=== PATIENT | male | born 1980 | race Caucasian/White ===

== ENCOUNTER 2023-06-27 02:05 | Emergency (ER) | payer BC, MEDICAID ==
[2023-06-27] MEDS ORDERED: Ondansetron 4 MG/2 ML SDV ONE (02:35)
[2023-06-27] MEDS ORDERED: Ondansetron 4 MG/2 ML SDV IVPUSH ONE (02:39)
[2023-06-27 02:53] LABS: BASOPHILS ABSOLUTE AUTO 0.08 10^3/uL (0.00-0.10); BASOPHILS PERCENT AUTO 0.5 % (0.0-1.0); EOSINOPHILS ABSOLUTE AUTO 0.19 10^3/uL (0.10-0.30); EOSINOPHILS PERCENT AUTO 1.3 % (1.0-3.0); HEMATOCRIT 43.8 % (40.0-52.0); HEMOGLOBIN 14.9 g/dL (13.0-17.0); IMMATURE GRAN ABSOLUTE AUTO 0.02 10^3/uL (0.00-0.50); IMMATURE GRAN PERCENT AUTO 0.1 % (0.0-5.0); LYMPHOCYTES ABSOLUTE AUTO 3.94 10^3/uL (1.00-4.00); LYMPHOCYTES PERCENT AUTO 26.4 % (20.0-40.0); MEAN CORPUSCULAR VOLUME 96.9 fL (82.0-92.0); MONOCYTES ABSOLUTE AUTO 0.87 10^3/uL (0.10-0.80); MONOCYTES PERCENT AUTO 5.8 % (2.0-8.0); NEUTROPHILS ABSOLUTE AUTO 9.81 10^3/uL (2.50-7.00); NEUTROPHILS PERCENT AUTO 65.9 % (50.0-70.0); PLATELET COUNT,PLT 239 10^3/uL (150-400); RED BLOOD CELL COUNT 4.52 10^6/uL (4.50-6.00); RED CELL DISTRIBUTION WIDTH 11.9 % (11.5-14.5); WHITE BLOOD CELL COUNT,WBC 14.91 10^3/uL (5.00-10.00)
[2023-06-27 02:57] LABS: ALANINE AMINOTRANSFERASE,ALT 31 U/L (14-63); ALBUMIN 4.03 g/dL (3.40-5.00); ALKALINE PHOSPHATASE 60 U/L (46-116); ANION GAP 19.5 mmol/L (5-15); ASPARTATE AMNIOTRANSFERASE,AST 24 U/L (15-37); BILIRUBIN TOTAL 0.1 mg/dL (0.2-1.0); BLOOD UREA NITROGEN,BUN 11 mg/dL (7-18); CALCIUM 8.3 mg/dL (8.7-10.3); CARBON DIOXIDE,CO2 22.8 mmol/L (21.0-32.0); CHLORIDE,CL 100 mmol/L (98-107); CREATININE 0.78 mg/dL (0.51-1.17); ESTIMATED GFR 115 mL/min (>=60); GLUCOSE RANDOM 119 mg/dL (70-140); POTASSIUM,K 3.3 mmol/L (3.5-5.1); PROTEIN TOTAL,TP 7.6 g/dL (6.4-8.2); SODIUM,NA 139 mmol/L (136-145)
[2023-06-27 02:58] LABS: ETHANOL BLOOD MEDICAL 279 mg/dL (NOT DETECTED)
[2023-06-27] MEDS ORDERED: Sodium Chloride 0.9% 1,000 ML IV ONE (03:00)
== END 2023-06-27 03:48 ==
LOC: KA.ED 02:05 → SUPCPDRO 02:05 → KA.ED 03:48
DX: S06.6X0A Traumatic subarachnoid hemorrhage without loss of consciousness, initial encounter (principal); S02.40FA Zygomatic fracture, left side, initial encounter for closed fracture; S02.2XXA Fracture of nasal bones, initial encounter for closed fracture; S02.85XA Fracture of orbit, unspecified, initial encounter for closed fracture; S02.412A LeFort II fracture, initial encounter for closed fracture; S02.413A LeFort III fracture, initial encounter for closed fracture; D72.828 Other elevated white blood cell count; F10.920 Alcohol use, unspecified with intoxication, uncomplicated; Y04.2XXA Assault by strike against or bumped into by another person, initial encounter; Z79.899 Other long term (current) drug therapy; Z91.048 Other nonmedicinal substance allergy status
CPT/HCPCS: 36415; 70450; 70486; 72125; 80053; 80307; 83605; 85025; 96374; 99285; J2405; J7030; Q3014

== ENCOUNTER 2023-06-30 00:01 | Emergency (ER) | payer BC, MEDICAID ==
[2023-06-30] MEDS: HYDROmorphone 1 MG/ML Syringe IVPUSH ONE (01:00)
[2023-06-30] MEDS: cefTRIAXone 1 GM Vial IVPUSH ONE (01:05)
== END 2023-06-30 02:30 | disposition home or self-care (01) ==
LOC: KA.ED 00:01
DX: R51.9 Headache, unspecified (principal); Z87.820 Personal history of traumatic brain injury; Z79.899 Other long term (current) drug therapy; Z91.048 Other nonmedicinal substance allergy status
CPT/HCPCS: 70450; 87070; 87075; 87186; 87205; 96374; 96375; 99284; 99284-25; J0696; J1170